=== PATIENT | male | born 1995 | race African-American/Black ===

== ENCOUNTER 2020-08-24 12:15 | Emergency (ER) | payer SELFPAY ==
[~2020-08-24] VITALS: Ht 165.1 cm; Wt 63.0 kg
[2020-08-24 12:46] VITALS: BP 101/65
[2020-08-24] MEDS ORDERED: LIDOCAINE HCL/EPINEPHRINE 1%-EPI 1:100,000 20 ML VIAL INFIL ONE (13:15)
[2020-08-24] MEDS ORDERED: LIDOCAINE 1%/EPI 1:200,000 10 ML VIAL IJ NR (13:30)
[2020-08-24] MEDS ORDERED: SULF1TAB48 MT (13:52)
[2020-08-24] MEDS ORDERED: IBUP-2029 MT (13:52)
[2020-08-24] MEDS ORDERED: DOXY100C2 MT (13:52)
[2020-08-24] MEDS ORDERED: IBUPROFEN 600MG TABLET PO ONE (14:00)
== END 2020-08-24 14:13 | disposition home or self-care (01) ==
LOC: ER 12:15
DX: L02.31 Cutaneous abscess of buttock (principal); R03.0 Elevated blood-pressure reading, without diagnosis of hypertension
CPT/HCPCS: 10060; 99284; Z7610; J3490